=== PATIENT | female | born 1940 | race Caucasian/White ===

== ENCOUNTER 2024-11-20 08:30 | Emergency (ER) | payer MEDICARE, OTHER ==
[2024-11-20 08:55] LABS: PLATELET COUNT,PLT 372 10^3/uL (150-450); RED BLOOD CELL COUNT 4.34 10^6/uL (4.2-5.4); WHITE BLOOD CELL COUNT,WBC 8.8 10^3/uL (5.0-10.0)
[2024-11-20 08:59] LABS: BASOPHILS PERCENT AUTO 0.1 % (0.0-1.0); EOSINOPHILS PERCENT AUTO 1.0 % (1.0-3.0); LYMPHOCYTES PERCENT AUTO 28.7 % (20.5-50.1); MONOCYTES PERCENT AUTO 6.8 % (2-8); NEUTROPHILS PERCENT AUTO 63.4 % (42.2-75.2)
[2024-11-20 09:15] LABS: ALANINE AMINOTRANSFERASE,ALT 24 U/L (14-59); ASPARTATE AMNIOTRANSFERASE,AST 17 U/L (15-37); BILIRUBIN TOTAL 0.6 mg/dL (0.2-1.0); BLOOD UREA NITROGEN,BUN 12 mg/dL (7-18); CARBON DIOXIDE,CO2 28 mmol/L (21-32); CHLORIDE,CL 108 mmol/L (98-107); CREATININE 0.86 mg/dL (0.55-1.02); GLUCOSE RANDOM 116 mg/dL (70-99); POTASSIUM,K 4.3 mmol/L (3.5-5.1); PROTEIN TOTAL,TP 6.8 g/dL (6.4-8.2); SODIUM,NA 143 mmol/L (136-145)
[2024-11-20 09:16] LABS: A/G RATIO 0.79; ESTIMATED GFR 67 mL/min (>=60)
[2024-11-20 09:33] LABS: BAND PERCENT MAN 7 %; SEG NEUTROPHILS PERCENT MAN 53 % (42-75)
[2024-11-20 09:34] LABS: LYMPHOCYTES PERCENT MAN 35 % (20-50); MONOCYTES PERCENT MAN 5 % (2-8)
== END 2024-11-20 14:09 | disposition home or self-care (01) ==
LOC: DL.ED 08:30
DX: R56.9 Unspecified convulsions (principal)
CPT/HCPCS: 36415; 80053; 82947; 83735; 85025; 93005; 99285